=== PATIENT | female | born 1955 | race Caucasian/White ===

== ENCOUNTER 2018-02-04 02:33 | Outpatient (CLI) | payer BC, SELFPAY ==
[2018-02-04 11:50] LABS: Cholesterol 185 mg/dL (50-200); HDL Cholesterol 73 mg/dL (40-60); LDL CHOLESTEROL 102 mg/dL (<100); Triglyceride 64 mg/dL (30-150)
[2018-02-04 11:51] LABS: Hemoglobin A1C 7.6 % (4.5-6.2)
== END 2018-02-04 02:53 ==
LOC: LBO 02:34 → LOS 12:16
PROVIDERS: PCP Family Medicine; Visit Provider Family Medicine
DX: E11.8 Type 2 diabetes mellitus with unspecified complications (principal); Z13.220 Encounter for screening for lipoid disorders
CPT/HCPCS: 36415; 80061; 83721; 83036

== ENCOUNTER 2018-10-29 02:04 | Outpatient (CLI) | payer BC, SELFPAY ==
[2018-10-29 10:47] LABS: HCT 39.6 % (36.0-46.0); Mean Corp. HGB Concentration 32.8 g/dL (32.0-36.0); Mean Corpuscular Hemoglobin 29.7 pg (27.0-33.0); Mean Corpuscular Volume 90.6 fL (80-95); Mean Platelet Volume 11.3 fL (8.0-11.0); Platelet Count 310 x1000/uL (130-400); RBC 4.37 m/cumm (4.00-5.20); RBC Distribution Width 13.5 % (11.7-14.6); White Blood Cell Count 3.02 k/cumm (4.4-10.8)
[2018-10-29 11:10] LABS: Hemoglobin A1C 7.2 % (4.5-6.2)
[2018-10-29 11:25] LABS: ALT 30 U/L (12-78); AST 17 U/L (15-37); Albumin 3.7 g/dL (3.4-5.0); Alkaline Phosphatase 156 U/L (46-116); Anion Gap 8.9 mmol/L (3-11); BUN 40 mg/dL (7-18); Bilirubin, Total 0.7 mg/dL (0.2-1.0); CO2 27.1 mmol/L (21.0-32.0); CREATININE 1.52 mg/dL (0.55-1.02); Chloride 103 mmol/L (98-107); Cholesterol 216 mg/dL (50-200); Estimated GFR 34.65 (mL/min/1.73m2); Glucose 139 mg/dL (70-100); HDL Cholesterol 73 mg/dL (40-60); LDL CHOLESTEROL 117 mg/dL (<100); Potassium 5.1 mmol/L (3.5-5.1); Sodium 139 mmol/L (136-145); TSH (W/Ref FT4) 2.13 uIU/mL (0.358-3.74); Total Protein 6.7 g/dL (6.4-8.2); Triglyceride 68 mg/dL (30-150)
[2018-10-29 11:28] LABS: Vitamin B12 > 2000 pg/mL (193-986)
== END 2018-10-29 02:24 ==
PROVIDERS: PCP Family Medicine; Visit Provider Family Medicine
DX: Z00.00 Encounter for general adult medical examination without abnormal findings (principal)
CPT/HCPCS: 36415; 80053; 80061; 83721; 85027; 82607; 83036; 84443

== ENCOUNTER 2018-11-11 01:11 | Outpatient (CLI) | payer BC, SELFPAY ==
--- NOTE | 2018-11-11 11:38 | DI.MAMMO_ITS ---
SYMPTOMS/DIAGNOSIS: SCREENING, Z12.31 MAMMOGRAMS: Mammograms were interpreted according to the usual protocol including computer analysis with CAD system, tomosynthesis and C view imaging. The breast tissue is of moderate radiodensity. There is no dominant mass. There are no suspicious calcifications and there has been no significant interval change when compared with the prior images. SUMMARY: No evidence of malignancy, category 1. Yearly screening mammography is recommended. Breast density category B. SA ASSESSMENT OF FINDINGS: Negative. Category 1. Patient will receive a letter notifying them of these results. BI-RADS category B. There are scattered areas of fibroglandular density.
== END 2018-11-11 01:31 ==
PROVIDERS: PCP Family Medicine; Visit Provider Family Medicine
DX: Z12.31 Encounter for screening mammogram for malignant neoplasm of breast (principal)
CPT/HCPCS: 77063; 77067

== ENCOUNTER 2018-11-21 13:49 | Outpatient (REF) | payer BC, SELFPAY | END 2018-11-21 14:09 | LOC: NCHCN 13:49 | PROVIDERS: PCP Family Medicine; Visit Provider Family Medicine | DX: R30.0 Dysuria (principal) | CPT/HCPCS: 87077; 87086; 87186 ==